=== PATIENT | male | born 2005 | race Two or more races ===

== ENCOUNTER 2025-08-30 10:06 | Emergency (ER) | payer MEDICAID, SELFPAY ==
[2025-08-30 10:10] VITALS: BMI 22.0
[2025-08-30 10:18] VITALS: BP 157/76; PULSE 79; RESP 17; TEMP 36.6; O2SAT 97
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
--- NOTE | 2025-08-30 10:26 | PC.NURSE ---
PER MOM AND PT HE TOOK IBUPROFEN/MOTRIN AT 0900
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
== END 2025-08-30 11:31 | disposition home or self-care (01) ==
PROVIDERS: Emergency Provider Nurse Practitioner Primary Care
DX: S83.92XA Sprain of unspecified site of left knee, initial encounter (principal); X58.XXXA Exposure to other specified factors, initial encounter; Y93.I9 Activity, other involving external motion
CPT/HCPCS: 73562; 99283